=== PATIENT | female | born 1985 ===

== ENCOUNTER 2017-09-20 17:44 | Emergency (ER) | payer OTHER ==
[~2017-09-20] VITALS: Ht 152.4 cm; Wt 68.0 kg
[2017-09-20] MEDS ORDERED: KETOROLAC TROMETHAMINE 60 MG/2 ML VIAL IM ONE (18:15)
== END 2017-09-20 18:35 | disposition home or self-care (01) ==
LOC: FSED 17:44
DX: K02.9 Dental caries, unspecified (principal)
CPT/HCPCS: 99282; J1885